=== PATIENT | male | born 1985 | race Caucasian/White ===

== ENCOUNTER 2017-03-20 14:33 | Emergency (ER) | payer SELFPAY ==
[2017-03-20] MEDS ORDERED: Lidocaine 1% 20 ML MDV INJECT ONE (14:53)
[2017-03-20] MEDS ORDERED: Diphtheria,Pertussis(Acell),Tetanus Vaccine 0.5 ML Syringe IM ONE (15:10)
--- NOTE | 2017-03-20 15:10 | EDM.PDOC ---
ED HPI GENERAL MEDICAL PROBLEM - General Chief Complaint: Laceration Stated Complaint: RIGHT AND FINGER INJURD Time Seen by Provider: 03/20/17 14:44 - History of Present Illness INITIAL COMMENTS - FREE TEXT/NARRATIVE: HISTORY AND PHYSICAL: History of present illness: The patient is a healthy 32-year-old male who presents with complaints of injury to his right fourth digit that occurred while he was at work today. According to the patient he was in his usual state of good health with no complaints and is left-hand dominant when he was using a power tool holding it in his left hand and stabilizing the area he was working on with his right hand and the tool and the patient lost balance and he injured the finger by crushing it with the tool. He has a laceration with some discomfort to the right fourth tuft area and the remainder of the hand and fingers are without tenderness defects or deformities. He has no other injuries and says that neurosensory is intact in the hand. He is unsure of his last tetanus shot Review of systems: As per history of present illness and below otherwise all systems reviewed and negative. Past medical history: As per history of present illness and as reviewed below otherwise noncontributory. Surgical history: As per history of present illness and as reviewed below otherwise noncontributory. Social history: No reported history of drug or alcohol abuse. Family history: As per history of present illness and as reviewed below otherwise noncontributory. Physical exam: Gen.: Well-developed well-nourished male who is nontoxic and vital signs were noted by me HEENT: Atraumatic, normocephalic, negative for conjunctival pallor or scleral icterus, mucous membranes moist, neck supple, nontender, trachea midline. Lungs: Clear to auscultation, breath sounds equal bilaterally, chest nontender. Heart: S1S2, regular rate and rhythm no overt murmurs Abdomen: Soft, nondistended, nontender. NABS Skin: Normal turgor no evidence of any rashes or lesions and no diaphoresis Genitourinary: Deferred. Rectal: Deferred. Extremities: Atraumatic with full range of motion of all extremities with the exception of the right fourth digit where there is tenderness and soft tissue swelling as well as a vertical laceration on the soft tissue of the tuft of this finger. There are no palpable bony deformities and the patient is able to flex and extend without difficulty at this digit. The laceration has somewhat macerated edges and contused tissue that measures approximately 2.5 cm in length. There is no active bleeding noted. The nail is intact and is stable in location and is only exhibiting some slight looseness and there is no subungual hematoma. The remainder of the digits on the right hand as well as the hand proximal wrist forearm elbow and shoulder all intact without tenderness defects or deformities The legs are, negative for cords or calf pain. Neurovascular unremarkable. Neuro: Awake, alert, oriented. Cranial nerves II through XII unremarkable. Cerebellum unremarkable. Motor and sensory unremarkable throughout. Exam nonfocal. Diagnostics: Right finger x-ray Therapeutics: Tdap, lidocaine for procedure note Procedure note: After the procedure was explained to the patient the area was given a digital block with 1% lidocaine without epinephrine without complication. The nurse has scrubbed and cleansed the area and the area was prepped and draped in sterile fashion. The wound was explored and no foreign bodies were appreciated and the skin edges were reapproximated using a total number of # 7 sutures of 4-0 nylon in a simple interrupted fashion. The patient tolerated the procedure well and there were no complications. Due to the nature of the injury I will place the patient on antibiotics for home. He states he has a penicillin allergy for which he gets a rash so I will give him Keflex. The procedure was performed by Jaime Whalen NP. The patient was notified of this tuft fracture in that the fracture is open and that it needed to be treated with antibiotics and followed up by hand Impression: Right fourth finger laceration/open tuft fracture Definitive disposition and diagnosis as appropriate pending reevaluation and review of above. Right 4-Ring finger Pain Score (Numeric/FACES): 5 - Related Data Allergies Allergy/AdvReac Type Severity Reaction Status Date / Time Penicillins Allergy Rash Verified 03/20/17 14:53 Home Meds: Home Meds . [No Known Home Meds] 03/20/17 [History] Past Medical History - Infectious Disease History Infectious Disease History: Reports: Chicken Pox - Past Surgical History Musculoskeletal Surgical History: Reports: Arthroscopic Knee, Other (See Below) Other Musculoskeletal Surgeries/Procedures:: plate placement in hand, removal Social & Family History - Tobacco Use Smoking Status *Q: Current Every Day Smoker Years of Tobacco use: 12 Packs/Tins Daily: 1 - Caffeine Use Caffeine Use: Reports: Energy Drinks, Soda, Tea - Recreational Drug Use Recreational Drug Use: No ED ROS GENERAL - Review of Systems Review Of Systems: ROS reveals no pertinent complaints other than HPI. ED EXAM, SKIN/RASH Exam: See Below (See dictation) Course - Vital Signs Last Recorded V/S: Last Vital Signs Temp 36.3 C 03/20/17 14:48 Pulse 100 03/20/17 14:48 Resp 16 03/20/17 14:48 BP 124/86 03/20/17 14:48 Pulse Ox 98 03/20/17 14:48 - Orders/Labs/Meds Orders: Active Orders 24 hr Category Date Time Status Communication Order [RC] STAT Care 03/20/17 16:06 Active Vaccines to be Administered [RC] PER UNIT ROUTINE Care 03/20/17 15:11 Active Fingers Fourth Digit Rt F8 [CR] Stat Exams 03/20/17 15:10 Taken Meds: Medications Discontinued Medications Generic Name Dose Route Start Last Admin Trade Name Mariana PRN Reason Stop Dose Admin Bacitracin 1 dose 03/20/17 16:06 03/20/17 16:29 Bacitracin Oint 1 Gm TOP 03/20/17 16:07 1 dose ONETIME ONE Administration Diphtheria/Tetanus/Acell Pertussis 0.5 ml 03/20/17 15:10 03/20/17 15:19 Adacel IM 03/20/17 15:11 0.5 ml .ONCE ONE Administration Lidocaine HCl 20 ml 03/20/17 14:53 03/20/17 15:22 Xylocaine 1% INJECT 03/20/17 14:54 20 ml ONETIME ONE Administration Departure - Departure Time of Disposition: 16:34 Disposition: Home, Self-Care 01 Condition: Good Clinical Impression: Open fracture of tuft of distal phalanx of finger - Discharge Information Referrals: PCP,None [Primary Care Provider] - Forms: ED Department Discharge Additional Instructions: The following information is given to patients seen in the emergency department who are being discharged to home. This information is to outline your options for follow-up care. We provide all patients seen in our emergency department with a follow-up referral. The need for follow-up, as well as the timing and circumstances, are variable depending upon the specifics of your emergency department visit. If you don't have a primary care physician on staff, we will provide you with a referral. We always advise you to contact your personal physician following an emergency department visit to inform them of the circumstance of the visit and for follow-up with them and/or the need for any referrals to a consulting specialist. The emergency department will also refer you to a specialist when appropriate. This referral assures that you have the opportunity for followup care with a specialist. All of these measure are taken in an effort to provide you with optimal care, which includes your followup. Under all circumstances we always encourage you to contact your private physician who remains a resource for coordinating your care. When calling for followup care, please make the office aware that this follow-up is from your recent emergency room visit. If for any reason you are refused follow-up, please contact the [facility] emergency department at and ask to speak to the emergency department charge nurse. [facility] Specialty clinic-Plastic Surgery [place] [address] Please keep area clean and dry and do not remove the dressing placed in the ER until 24 hours have passed. Then remove the dressing and use mild soap and water pat dry and apply bacitracin or Neosporin. Please take antibiotics as prescribed as well as [id number] medications for pain. Please call and follow-up with our hand specialist next few days using number above and return to ER as needed and as discussed. The hand specialist can remove the sutures in 7-10 days Prescribed Keflex via [employer] - My Orders Last 24 Hours: My Active Orders 03/20/17 15:10 Fingers Fourth Digit Rt F8 [CR] Stat 03/20/17 15:11 Vaccines to be Administered [RC] PER UNIT ROUTINE 03/20/17 16:06 Communication Order [RC] STAT - Assessment/Plan Last 24 Hours: My Active Orders 03/20/17 15:10 Fingers Fourth Digit Rt F8 [CR] Stat 03/20/17 15:11 Vaccines to be Administered [RC] PER UNIT ROUTINE 03/20/17 16:06 Communication Order [RC] STAT
[2017-03-20] MEDS ORDERED: Bacitracin Oint 1 GM U/D Packet TOP ONE (16:06)
[2017-03-20 17:17] VITALS: BP 127/90
--- NOTE | 2017-03-21 16:55 | CR ---
EXAM DATE: 03/20/17 PATIENT'S AGE: 32 Patient: KTAHY MINOR Facility: [place], [place] Site . Site : [id number] Study: XRay Extremity Right [id number]/10/2017 3:20:36 PM Ordering Physician: Josefina Raymundo Final Report: Indication: Trauma and pain Technique: Right fingers 3 views. Comparison: None Findings/Impression: Bones: There is a comminuted crush type fracture in the distal tuft of the right 4th finger. No other osseous abnormality. Joint spaces: Unremarkable. Soft tissues: Soft tissue injury is present in the distal tip of the 4th finger. Dictated by Melecio Gould MD @ 03/20/2017 3:35:42 PM Dictated by: Melecio Gould MD @ 03/20/2017 15:35:53 (Electronic Signature) Report Signed by Proxy. JUS
== END 2017-03-20 16:53 | disposition home or self-care (01) ==
LOC: MW.ED 14:33
DX: S62.634B Displaced fracture of distal phalanx of right ring finger, initial encounter for open fracture (principal); F17.210 Nicotine dependence, cigarettes, uncomplicated; Z88.0 Allergy status to penicillin; W29.8XXA Contact with other powered hand tools and household machinery, initial encounter
CPT/HCPCS: 12001; 73140-26-F8; 73140-F8; 90471; 90715; 99282; 99283-25